=== PATIENT | male | born 1940 | race Caucasian/White ===

== ENCOUNTER 2016-12-12 06:19 | Day surgery (SDC) | payer MEDICARE, BC ==
[~2016-12-12 06:19] MED LIST: KETOROLAC TROMETHAMINE 0.45% 4 DROP/0.4 ML DROPERETTE OS PRN
[2016-12-12] MEDS: TROPICAMIDE 1% OPH SOLN 3 ML OS PRN ×3 (06:47→07:09)
[2016-12-12] MEDS: CYCLOPENTOLATE 0.2%/PHENYLEPHRINE 1% OPH SOLN 2 ML OS PRN ×3 (06:47→07:09)
[2016-12-12] MEDS: TETRACAINE HCL 0.5% OPH SOLN 2 ML OS PRN ×3 (06:47→07:35)
[2016-12-12] MEDS: BESIFLOXACIN HCL 0.6% OPH SUSP 5 ML BOTTLE OS PRN ×4 (06:48→08:02)
[2016-12-12] MEDS ORDERED: FENTANYL CITRATE INJ/PF 100 MCG/2 ML AMPUL ONE (07:20)
[2016-12-12] MEDS ORDERED: ONDANSETRON HCL INJ/PF 4 MG/2 ML SDV ONE (07:20)
[2016-12-12] MEDS ORDERED: MIDAZOLAM 2 MG/2 ML INJ ONE (07:20)
[2016-12-12] MEDS ORDERED: EPINEPHRINE INJ/PF 1 MG/1 ML AMPULE ONE (07:23)
[2016-12-12] MEDS ORDERED: CHONDR SU A NA/HYALUR INTRAOC KIT (SURGICARE) ONE (07:24)
[2016-12-12] MEDS ORDERED: LIDOCAINE 1% INJ-PF (10 MG/ML) 30 ML SDV ONE (07:24)
--- NOTE | 2016-12-12 18:53 | [facility] DISCHARGE SUMMARY E ---
[facility] Discharge Summary NAME: TORI TAN AGE: 76Y ADMITTED: 12/12/2016 DISCHARGED: 12/12/2016 HISTORY OF PRESENT ILLNESS AND HOSPITAL COURSE: This is a 76-year-old male who underwent cataract extraction of the left eye. DIAGNOSIS: Cataract, left eye. HOSPITAL COURSE: He underwent surgery because he was having difficulty reading road signs and captions on TV and unable to read small print. DISCHARGE INSTRUCTIONS: 1. He is to be on a regular diet. 2. No bending at the waist and no heavy lifting. 3. He is to use Besivance, Ilevro, and Durezol at 3 p.m. and 8 p.m. and sleep with a rigid shield. 4. I will see him for his one-day postoperative tomorrow. DICTATING PHYSICIAN: FRANC WILD M.D. [id number] PHY#: [id number] ID: [id number] JOB#: [id number] ACCT: [id number] cc:FRANC WILD M.D. >
--- NOTE | 2016-12-12 18:54 | [facility] OPERATIVE REPORT E ---
[facility] Operative Report NAME: TORI TAN AGE: 76Y DATE OF SURGERY: 12/12/2016 ROOM: PREOPERATIVE DIAGNOSIS: Cataract, left eye. POSTOPERATIVE DIAGNOSIS: Cataract, left eye. OPERATION: Cataract extraction with intraocular lens implant of the left eye. SURGEON: FRANC WILD M.D. ANESTHESIA: Topical. PROCEDURE: After obtaining appropriate consent, the patient's left eye was prepped and draped in sterile fashion as well as the surgeon in a sterile manner and cataract surgery was started. First a paracentesis blade was used to make a small side-port incision. Viscoelastic was used to inflate the anterior chamber. Next a 2.4 mm incision was made with the paracentesis blade. A continuous capsulorrhexis incision was made using a cystotome and Utrata forceps. Following this hydrodissection was carried out to make the lens fully loose and mobile and it was rotated 90 degrees. Following this, a bcnxry-ydr-gputubt technique was used to phacoemulsify the lens with a CDE of 7.23. The remaining cortex was removed with irrigation/aspiration. Provisc was instilled into the capsular bag to inflate the bag. A SN60WF, 19.0 diopter lens was placed. The remaining viscoelastic material was removed with irrigation/aspiration. Following this, a 10-0 nylon suture was used to close the incision and it was found to be watertight. Vigamox was instilled in the eye and a protective shield was placed over the eye. The patient returned to the postoperative recovery in stable condition. DICTATING PHYSICIAN: FRANC WILD M.D. [id number] PHY#: [id number] ID: [id number] JOB#: [id number] ACCT: [id number] cc:FRANC WILD M.D. >
== END 2016-12-12 08:41 | disposition home or self-care (01) ==
LOC: SC 06:19
PROVIDERS: ATTEND Internal Medicine
PROC: 08RK3JZ Replacement of Left Lens with Synthetic Substitute, Percutaneous Approach (ICD-10-PCS; principal; 2016-12-12 07:30)
DX: H25.12 Age-related nuclear cataract, left eye (principal)
CPT/HCPCS: 66984; V2632; J2250; J3490 ×2; A9270; J0171; J3010; J2405; 142

== ENCOUNTER 2017-01-02 06:44 | Day surgery (SDC) | payer MEDICARE, BC ==
[~2017-01-02 06:44] MED LIST changes: +KETOROLAC TROMETHAMINE 0.45% 4 DROP/0.4 ML DROPERETTE OD PRN; -KETOROLAC TROMETHAMINE 0.45% 4 DROP/0.4 ML DROPERETTE OS PRN
[2017-01-02] MEDS: TETRACAINE HCL 0.5% OPH SOLN 2 ML OD PRN ×4 (07:00→08:05)
[2017-01-02] MEDS: TROPICAMIDE 1% OPH SOLN 3 ML OD PRN ×3 (07:01→07:17)
[2017-01-02] MEDS: CYCLOPENTOLATE 0.2%/PHENYLEPHRINE 1% OPH SOLN 2 ML OD PRN ×3 (07:01→07:17)
[2017-01-02] MEDS: BESIFLOXACIN HCL 0.6% OPH SUSP 5 ML BOTTLE OD PRN ×4 (07:01→08:30)
[2017-01-02] MEDS ORDERED: MIDAZOLAM 2 MG/2 ML INJ ONE (07:45)
[2017-01-02] MEDS: CHONDR SU A NA/HYALUR INTRAOC KIT (SURGICARE) ONE ×2 (08:15)
[2017-01-02] MEDS: LIDOCAINE 1% INJ-PF (10 MG/ML) 30 ML SDV ONE ×2 (08:15)
[2017-01-02] MEDS: EPINEPHRINE INJ/PF 1 MG/1 ML AMPULE ONE ×2 (08:15)
--- NOTE | 2017-01-02 20:23 | [facility] OPERATIVE REPORT E ---
[facility] Operative Report NAME: TORI TAN AGE: 76Y DATE OF SURGERY: 01/02/2017 ROOM: PREOPERATIVE DIAGNOSIS: CATARACT, RIGHT EYE. POSTOPERATIVE DIAGNOSIS: CATARACT, RIGHT EYE. OPERATION: Cataract extraction with intraocular lens implant of the right eye. SURGEON: FRANC WILD M.D. ANESTHESIA: Topical. PROCEDURE: After obtaining appropriate consent, the patient's right eye was prepped and draped in sterile fashion as well as the surgeon in a sterile manner and cataract surgery was started. First a paracentesis blade was used to make a small side-port incision. Viscoelastic was used to inflate the anterior chamber. Next a 2.4 mm incision was made with the paracentesis blade. A continuous capsulorrhexis incision was made using a cystotome and Utrata forceps. Following this hydrodissection was carried out to make the lens fully loose and mobile and it was rotated 90 degrees. Following this, a tpgorj-otr-fupjnmp technique was used to phacoemulsify the lens with a CDE of 10.4. The remaining cortex was removed with irrigation/aspiration. Provisc was instilled into the capsular bag to inflate the bag. A SN60WF, 18.5 diopter lens was placed. The remaining viscoelastic material was removed with irrigation/aspiration. Following this, a 10-0 nylon suture was used to close the incision and it was found to be watertight. Vigamox was instilled in the eye and a protective shield was placed over the eye. The patient returned to the postoperative recovery in stable condition. DICTATING PHYSICIAN: FRANC WILD M.D. [id number] PHY#: [id number] ID: [id number] JOB#: [id number] ACCT: [id number] cc:FRANC WILD M.D. >
--- NOTE | 2017-01-02 20:28 | DISCHARGE SUMMARY E ---
Discharge Summary NAME: TORI TAN : 1940 AGE: 76Y ADMITTED: 01/02/2017 DISCHARGED: 01/02/2017 This is a 76-year-old patient who underwent cataract extraction of the right eye. DIAGNOSIS: Cataract, right eye. He underwent surgery because he was having difficulty seeing road signs and medicine bottles. DISCHARGE INSTRUCTIONS: He is to be on a regular diet. No bending at his waist, no heavy lifting. He is to use Besivance, Ilevro, and Durezol at 3:00 p.m. and 8:00 p.m., and sleep with a rigid shield. I will see him for his 1-day postoperative tomorrow. DICTATING PHYSICIAN: FRANC WILD M.D. [id number] PHY#: [id number] ID: [id number] JOB#: [id number] ACCT: [id number] cc:FRANC WILD M.D. >
== END 2017-01-02 09:12 | disposition home or self-care (01) ==
LOC: SC 06:44
PROVIDERS: ATTEND Internal Medicine
PROC: 08RJ3JZ Replacement of Right Lens with Synthetic Substitute, Percutaneous Approach (ICD-10-PCS; principal; 2017-01-02 08:00)
DX: H25.11 Age-related nuclear cataract, right eye (principal); Z96.1 Presence of intraocular lens
CPT/HCPCS: 66984; V2632; J2250; J3490 ×2; A9270; J0171; 142